=== PATIENT | female | born 1950 | race Caucasian/White ===

== ENCOUNTER 2022-06-29 10:53 | Outpatient (CLI) | payer MEDICARE, SELFPAY ==
--- NOTE | ~2022-06-29 | MR_ITS ---
EXAMINATION: MR knee LT wo con DATE: 06/29/2022 11:53 INDICATION: Left knee pain TECHNIQUE: Magnetic resonance imaging (MRI) of the left knee was performed without intravenous contra st. Sequences included coronal PD-weighted FSE, coronal PD-weighted FS FSE, sagittal T2-weighted FSE , sagittal PD-weighted FS FSE and axial PD weighted fat saturated FSE. COMPARISON: None. FINDINGS: Medial compartment: Medial meniscus is normal. Small region of partial-thickness chondral fissuring along the lateral mar gin of the central weightbearing medial femoral condyle. Normal cartilage along the medial tibial margarita teau. Lateral compartment: Longitudinal horizontal tear extending to the superior articular surface at the anterior horn, crossi ng the inner free edge at the junction of the anterior horn and body and contacting the intra-articul ar surface near the free edge of the lateral meniscal body. Articular cartilage is normal. Patellofemoral compartment: Shallow chondral fissuring at the central aspect of the lateral patellar facet. Small region of deep chondral ulceration with underlying cortical irregularity and mild edema-like signal change at the in ferior aspect of the trochlear groove and adjacent inferolateral aspect of the medial trochlea. Ligaments and tendons: Anterior and posterior cruciate ligaments are normal. Mild thickening and increased signal of the pro ximal medial collateral ligament with prominent surrounding soft tissue edema consistent with low to moderate grade sprain/partial tear. The fibular collateral ligament complex is normal. The extensor m echanism is normal. The visualized medial and lateral hamstring tendons as well as the iliotibial ban d are normal. Fluid: Physiologic amount of fluid in the joint space. No loose osteochondral bodies identified. Osseous/other: Bone alignment is normal. No fracture or pathologic marrow replacing process. There is mild fatty mus cular atrophy of the distal semimembranosus muscle belly. No fracture or pathologic marrow replacing process. IMPRESSION: 1. Low to moderate grade sprain/partial tear of the proximal medial collateral ligament. 2. Longitudinal horizontal tear of the anterior horn and anterior body of the lateral meniscus. 3. 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 4. Nonspecific mild fatty atrophy of the distal semimembranosus. Reviewed, dictated and finalized at location A. IMPRESSION: 1. Low to moderate grade sprain/partial tear of the proximal medial collateral ligament. 2. Longitudinal horizontal tear of the anterior horn and anterior body of the l ateral meniscus. 3. Mild patellofemoral osteoarthritis with regions of moderate grade patellar a nd high-grade trochlear chondromalacia and mild medial compartment osteoarthrit is with small region of moderate grade chondromalacia along the medial femoral condyle. 4. Nonspecific mild fatty atrophy of the distal semimembranosus.
== END 2022-06-29 10:54 | disposition home or self-care (01) ==
PROVIDERS: Visit Provider Orthopaedic Surgery
DX: S83.412A Sprain of medial collateral ligament of left knee, initial encounter (principal); S83.282A Other tear of lateral meniscus, current injury, left knee, initial encounter; X58.XXXA Exposure to other specified factors, initial encounter; M17.12 Unilateral primary osteoarthritis, left knee
CPT/HCPCS: 73721